=== PATIENT | female | born 1965 | race Caucasian/White ===

== ENCOUNTER 2019-04-01 15:07 | Observation (INO) ==
[2019-04-01] MEDS ORDERED: 0.9 % Sodium Chloride 1,000 ML IVC ONE (15:37)
--- NOTE | 2019-04-01 15:40 | Emergency Department Note ---
Disposition Clinical Impression: Hyperglycemia, Ketosis due to diabetes Disposition: Admitted As Inpatient Condition: Fair Forms: ED Satisfaction Letter, Work/School Release Time of Disposition: 16:56 General Adult HPI - General Chief complaint: ED General Medical Stated complaint: "im dehydrated" Time Seen by Provider: 04/01/19 15:33 Source: patient Mode of arrival: private vehicle Limitations: no limitations Nursing Notes Reviewed: Yes Vital Signs Reviewed: Yes - History of Present Illness Pt Subjective Complaint: Feels dehydrated Onset (ago): day(s) (Yesterday and today) Location: other (Generalized) Pain Severity: moderate Pain Scale: 0 Consistency: constant Improves with: nothing Worsens with: nothing Associated symptoms: Reports: other (Patient notes constant thirst and frequent urination) - Related Data Home Medications Medication Instructions Recorded Confirmed Loratadine 09/13/17 Meloxicam 09/13/17 Zyrtec 09/13/17 metFORMIN 09/13/17 Lisinopril 04/01/19 PredniSONE 04/01/19 Victoza 2-Rafael 04/01/19 Allergies Allergy/AdvReac Type Severity Reaction Status Date / Time No Known Allergies Allergy Verified 09/13/17 14:14 All systems ED: reviewed and negative except as stated. Constitutional: Denies: fever, chills ENT ED: Denies: ear pain, throat pain, congestion Cardiovascular: Denies: chest pain, palpitations Respiratory: Denies: cough, dyspnea Gastrointestinal: Denies: abdominal pain, nausea, vomiting, diarrhea Integumentary: Reports: other (Sunburn to shoulders) Past Medical History - Past Medical History Attestation: Yes The following information was validated with the patient. Source: patient, old records reviewed, nursing notes reviewed Medical history: Reports: arthritis, asthma, diabetes, hypertension Psychiatric history: Reports: no psych history - Social History Smoking Status: Never smoker Smokeless Tobacco Status: No Alcohol use: Reports: none Drug use: Reports: none Physical Exam - General Limitations: no limitations General appearance: alert, in no apparent distress - Head Head exam: atraumatic, normocephalic, normal inspection - Eye Eye exam: Present: normal appearance, PERRL, EOMI. Absent: scleral icterus, con junctival injection - ENT ENT exam: normal exam, normal oropharynx, mucous membranes moist, TM's normal bilaterally, normal external ear exam - Neck Neck exam: Present: normal inspection, full ROM, trachea midline. Absent: meningismus - Chest Chest inspection: Present: normal inspection, symmetric chest wall rise. Absent: tenderness - Respiratory Respiratory exam: Present: normal lung sounds bilaterally. Absent: respiratory distress, wheezes - Cardiovascular Cardiovascular exam: Present: regular rate, normal rhythm, normal heart sounds - Abdominal Exam Abdominal exam: Present: soft, Non-Tender, normal bowel sounds - Extremities Exam Extremities exam: Present: normal inspection. Absent: pedal edema - Neurological Exam Neurological exam: Present: alert, oriented X3 - Psychiatric Psychiatric exam: Present: normal affect, normal mood - Skin Skin exam: Present: warm, dry, other (Sunburn to both shoulders, first-degree) Course Course Narrative: Patient feels like she is dehydrated. She talks about polydipsia and polyuria and she is diabetic. I am going to put a line in her get some IV fluids. We will check labs to evaluate dehydration but more importantly diabetic complications and other issues. Disposition will be based on diagnostic results and reevaluation. - Reevaluation(s) Reevaluation #1: Patient's glucose came back at 840. Bicarbonate Chem-7 is only 20 so not terribly low. PH on the VBG was 7.41 so were not really seeing acidosis. Her ketones are little bit elevated at 1.37. We will start her on insulin drip of 5 units an hour and hydrate her. I already spoken with the hospitalist, Dr. Garay, who accepted her for admission to the hospital. We will stop the steroids as they will probably the offending agent. Patient is aware of diagnosis and comfortable with the admission plan. Time: 16:55 - Consultations Consultation #1: Dr. Garay, the [facility] - I discussed case with the hospice. He accepted the patient for admission. Time: 16:50 Vital Signs Temperature 97.9 F 04/01/19 15:11 Pulse Rate 106 04/01/19 15:11 Respiratory Rate 18 04/01/19 15:11 Blood Pressure 179/101 04/01/19 15:11 O2 Sat by Pulse Oximetry 98 04/01/19 15:11 Temperature 97.9 F 04/01/19 15:11 Pulse Rate 106 04/01/19 15:11 Respiratory Rate 18 04/01/19 15:11 Blood Pressure 179/101 04/01/19 15:11 O2 Sat by Pulse Oximetry 98 04/01/19 15:11 Oxygen Delivery Oxygen Delivery Room Air Medical Decision Making - Medical Records Medical records reviewed: Yes I reviewed the patient's medical records. - Lab Data Lab results reviewed: Yes I reviewed the patient's lab results. Result diagrams: 04/01/19 15:57 04/01/19 15:57 Lab Results 04/01/19 04/01/19 04/01/19 Range/Units 15:46 15:57 15:57 WBC 13.1 H (4.3-11.1) K/mcL RBC 5.50 H (3.82-4.97) M/mcL Hgb 15.6 H (11.5-15.4) g/dL Hct 44.1 (35.3-44.9) % MCV 80.2 L (83.0-100.0) fL MCH 28.4 (28.0-33.3) pg MCHC 35.4 (31.6-35.5) g/dL RDW 12.5 (11.5-14.5) % Plt Count 294 (140-400) K/mcL MPV 11.1 (9.4-12.4) fL Immature Gran % 0.5 (0-4) % Seg Neutrophils % 74.9 % Lymphocytes % 18.3 % Monocytes % 6.1 % Eosinophils % 0.0 % Basophils % 0.2 % Neutrophils # 9.8 H (1.6-8.9) K/mcL Lymphocytes # 2.4 (0.6-4.6) K/mcL Monocytes # 0.8 (0.0-1.3) K/mcL Eosinophils # 0.0 (0.0-0.6) K/mcL Basophils # 0.0 (0.0-0.2) K/mcL VBG pH (7.32-7.42) pH Units VBG pCO2 (41-51) mmHg VBG pO2 (25-50) mmHg VBG HCO3 (21-27) mEq/L Sodium 125 L (136-145) mEq/L Potassium 4.9 (3.5-5.1) mEq/L Chloride 88 L (98-107) mEq/L Carbon Dioxide 20 L (23-29) mEq/L BUN 22 H (6-20) mg/dL Creatinine 1.01 (0.60-1.20) mg/dL Est GFR ( Amer) > 60 (> 60) Est GFR (Non-Af Amer) 58 L (> 60) BUN/Creatinine Ratio 22 (6-26) Glucose 840 H* (70-105) mg/dL Calculated Osmolality 305 H (280-300) Calcium 10.1 (8.6-10.3) mg/dL Total Bilirubin 0.7 (0.3-1.0) mg/dL Direct Bilirubin 0.1 (0.0-0.2) mg/dL Indirect Bilirubin 0.6 (0.0-1.2) mg/dL AST 12 L (13-39) Units/L ALT 33 (7-52) Units/L Alkaline Phosphatase 114 H (34-104) Units/L Serum Total Protein 7.8 (6.4-8.9) g/dL Albumin 4.5 (3.5-5.7) g/dL Globulin 3.3 (2.4-3.5) g/dL Albumin/Globulin Ratio 1.4 (1.1-2.2) Beta-Hydroxybutyric Acd (0.02-0.27) mmol/L Urine Color Yellow (Yellow) Urine Clarity Clear (Clear) Urine pH 5.0 (5.0-8.0) pH Units Ur Specific [place] <= 1.005 L (1.010-1.025) Urine Protein Negative (Neg-Trace) mg/dL Urine Glucose (UA) >=1000 H (Normal) mg/dL Urine Ketones 15 H (Negative) mg/dL Urine Blood Negative (Negative) Urine Nitrite Negative (Negative) Urine Bilirubin Negative (Negative) Urine Urobilinogen Normal (Normal) mg/dL Ur Leukocyte Esterase Negative (Negative) Ur Culture Indicated? NO (NO) 04/01/19 04/01/19 Range/Units 15:57 16:08 WBC (4.3-11.1) K/mcL RBC (3.82-4.97) M/mcL Hgb (11.5-15.4) g/dL Hct (35.3-44.9) % MCV (83.0-100.0) fL MCH (28.0-33.3) pg MCHC (31.6-35.5) g/dL RDW (11.5-14.5) % Plt Count (140-400) K/mcL MPV (9.4-12.4) fL Immature Gran % (0-4) % Seg Neutrophils % % Lymphocytes % % Monocytes % % Eosinophils % % Basophils % % Neutrophils # (1.6-8.9) K/mcL Lymphocytes # (0.6-4.6) K/mcL Monocytes # (0.0-1.3) K/mcL Eosinophils # (0.0-0.6) K/mcL Basophils # (0.0-0.2) K/mcL VBG pH 7.41 (7.32-7.42) pH Units VBG pCO2 33 L (41-51) mmHg VBG pO2 96 H (25-50) mmHg VBG HCO3 21 (21-27) mEq/L Sodium (136-145) mEq/L Potassium (3.5-5.1) mEq/L Chloride (98-107) mEq/L Carbon Dioxide (23-29) mEq/L BUN (6-20) mg/dL Creatinine (0.60-1.20) mg/dL Est GFR ( Amer) (> 60) Est GFR (Non-Af Amer) (> 60) BUN/Creatinine Ratio (6-26) Glucose (70-105) mg/dL Calculated Osmolality (280-300) Calcium (8.6-10.3) mg/dL Total Bilirubin (0.3-1.0) mg/dL Direct Bilirubin (0.0-0.2) mg/dL Indirect Bilirubin (0.0-1.2) mg/dL AST (13-39) Units/L ALT (7-52) Units/L Alkaline Phosphatase (34-104) Units/L Serum Total Protein (6.4-8.9) g/dL Albumin (3.5-5.7) g/dL Globulin (2.4-3.5) g/dL Albumin/Globulin Ratio (1.1-2.2) Beta-Hydroxybutyric Acd 1.37 H (0.02-0.27) mmol/L Urine Color (Yellow) Urine Clarity (Clear) Urine pH (5.0-8.0) pH Units Ur Specific [place] (1.010-1.025) Urine Protein (Neg-Trace) mg/dL Urine Glucose (UA) (Normal) mg/dL Urine Ketones (Negative) mg/dL Urine Blood (Negative) Urine Nitrite (Negative) Urine Bilirubin (Negative) Urine Urobilinogen (Normal) mg/dL Ur Leukocyte Esterase (Negative) Ur Culture Indicated? (NO)
[2019-04-01 16:04] LABS: Basophils % 0.2 %; Hematocrit 44.1 % (35.3-44.9); Hemoglobin 15.6 g/dL (11.5-15.4); Immature Granulocytes % 0.5 % (0-4); Lymphocytes # 2.4 K/mcL (0.6-4.6); Lymphocytes % 18.3 %; Mean Corpuscular HGB Conc 35.4 g/dL (31.6-35.5); Mean Corpuscular Hemoglobin 28.4 pg (28.0-33.3); Mean Corpuscular Volume 80.2 fL (83.0-100.0); Mean Platelet Volume 11.1 fL (9.4-12.4); Monocytes # 0.8 K/mcL (0.0-1.3); Monocytes % 6.1 %; Neutrophils # 9.8 K/mcL (1.6-8.9); Platelet Count 294 K/mcL (140-400); Red Cell Distribution Width 12.5 % (11.5-14.5); Segmented Neutrophils % 74.9 %; White Blood Count 13.1 K/mcL (4.3-11.1)
[2019-04-01 16:06] LABS: Bilirubin,Urine Negative (Negative); Blood,Urine Negative (Negative); Clarity,Urine Clear (Clear); Color,Urine Yellow (Yellow); Glucose,Urine (UA) >=1000 mg/dL (Normal); Ketones,Urine 15 mg/dL (Negative); Leukocyte Esterase,Urine Negative (Negative); Nitrite,Urine Negative (Negative); Protein,Urine Negative (Neg-Trace); Specific Gravity,Urine <= 1.005 (1.010-1.025); Urobilinogen,Urine Normal (Normal)
[2019-04-01 16:10] LABS: VBG HCO3 21 mEq/L (21-27); VBG PCO2 33 mmHg (41-51); VBG PH 7.41 pH Units (7.32-7.42); VBG PO2 96 mmHg (25-50)
[2019-04-01 16:31] LABS: Alanine Aminotransferase 33 Units/L (7-52); Albumin 4.5 g/dL (3.5-5.7); Albumin/Globulin Ratio 1.4 (1.1-2.2); Alkaline Phosphatase 114 Units/L (34-104); Aspartate Amino Transferase 12 Units/L (13-39); BUN/Creatinine Ratio 22 (6-26); Bilirubin,Direct 0.1 mg/dL (0.0-0.2); Bilirubin,Indirect 0.6 mg/dL (0.0-1.2); Bilirubin,Total 0.7 mg/dL (0.3-1.0); Blood Urea Nitrogen 22 mg/dL (6-20); Calcium 10.1 mg/dL (8.6-10.3); Carbon Dioxide 20 mEq/L (23-29); Chloride 88 mEq/L (98-107); Globulin 3.3 g/dL (2.4-3.5); Glucose 840 mg/dL (70-105); Osmolality,Calculated 305 (280-300); Potassium 4.9 mEq/L (3.5-5.1); Sodium 125 mEq/L (136-145); Total Protein 7.8 g/dL (6.4-8.9); eGFR For African Americans > 60 (> 60); eGFR For Non-African Americans 58 (> 60)
[2019-04-01] MEDS ORDERED: *HR* Dextrose 50 % in Water (Syg) 50 ML SYRINGE IVP PRN (16:57)
[2019-04-01] MEDS ORDERED: Insulin Human Regular 100 UNIT in 0.9 % Sodium Chloride 100 ML IVC SCH (17:00)
[2019-04-01] MEDS ORDERED: Naloxone 0.4 MG/ML INJ IVP PRN (17:11)
[2019-04-01] MEDS ORDERED: Ondansetron ODT 4 MG TAB.RAPDIS SL PRN (17:11)
[2019-04-01] MEDS ORDERED: *HR* Dextrose 50 % in Water (Vial) 50 ML VIAL IVP PRN (17:11)
[2019-04-01] MEDS ORDERED: 0.9 % Sodium Chloride 1,000 ML ONE (17:17)
[2019-04-01] MEDS: 0.9 % Sodium Chloride 1,000 ML IVC SCH ×2 (17:37→22:36)
[2019-04-01] MEDS: Insulin Human Regular 100 UNIT in 0.9 % Sodium Chloride 100 ML IVC SCH (17:41)
[2019-04-02] MEDS ORDERED: Dextrose Gel 15 GM/37.5 ML TUBE PO PRN ×2 (03:33)
[2019-04-02] MEDS ORDERED: D5% in Water 1,000 ML IVC PRN (03:33)
[2019-04-02] MEDS ORDERED: *HR* Dextrose 50 % in Water (Syg) 50 ML SYRINGE IVP PRN (03:33)
[2019-04-02] MEDS: Insulin LISPRO 300 UNITS/3 ML VIAL SQ SCH ×4 (07:29→20:32)
[2019-04-02 07:43] LABS: BUN/Creatinine Ratio 26 (6-26); Blood Urea Nitrogen 18 mg/dL (6-20); Calcium 8.1 mg/dL (8.6-10.3); Carbon Dioxide 24 mEq/L (23-29); Chloride 104 mEq/L (98-107); Glucose 322 mg/dL (70-105); Osmolality,Calculated 298 (280-300); Potassium 3.7 mEq/L (3.5-5.1); Sodium 137 mEq/L (136-145); eGFR For African Americans > 60 (> 60); eGFR For Non-African Americans > 60 (> 60)
--- NOTE | 2019-04-02 10:26 | Internal Med History&Physical ---
Date of Encounter: 04/02/19 Time of Encounter: 10:00 Assessment and Plan (1) Hyperglycemia Current visit: Yes Status: Acute She was started on insulin drip in emergency room. IV fluids have been ordered. Blood sugars will be monitored. (2) DM type 2 (diabetes mellitus, type 2) Current visit: Yes Status: Chronic Hemoglobin A1c will be checked. Continue metformin and Accu-Cheks with SSI when insulin drip is discontinued. Qualifiers: Diabetes mellitus assistant terminal manager insulin use: without fpc use Diabetes mellitus complication status: without complication Qualified Code(s): E11.9 - Type 2 diabetes mellitus without complications (3) Acute renal failure Current visit: Yes Status: Acute Likely due to dehydration and NSAID use. IV fluids have been ordered and renal indices will be monitored. Qualifiers: Acute renal failure type: unspecified Qualified Code(s): N17.9 - Acute kidney failure, unspecified (4) Hypertension Current visit: Yes Status: Chronic Hold lisinopril and monitor blood pressure. Qualifiers: Hypertension type: essential hypertension Qualified Code(s): I10 - Essential (primary) hypertension (5) Microcytosis Current visit: Yes Status: Acute Possible iron depletion from NSAID use. Iron studies will be ordered. (6) Weight loss Current visit: Yes Status: Acute TSH and hemoglobin A1c will be checked. Internal Medicine - H&P: HPI Chief complaint: Hyperglycemia, dehydration, acute renal insufficiency Admitted From: Emergency Dept Plans for Post Hospital Care: Home History of present illness: Ms. Byers is a 53 year old female who came to emergency room stating she had progressive weakness, dysgeusia, and "not acting right" "per family observation. She was evaluated in emergency room and was found to have severe hyperglycemia with acute renal insufficiency. She was admitted to [facility] floor for ongoing care needs. She reports she was treated for poison josselyn with IM injection of steroids and Rx for prednisone approximately 2 weeks ago at her PCP office. When the poison josselyn appeared to be worsening she returned to her PCP office on 03/29/2019 and received higher dose prednisone Rx. She does not routinely check her blood sugars at home. She was diagnosed with DM 2 approximately 4 years ago. She denies known thyroid disease or hyperlipidemia. Past Med Surg Social Fam HX - Past Medical History Medical history: arthritis, asthma, diabetes, hypertension Additional medical history: dm2, allergies, bronchitis, pneumonia Psychiatric history: no psych history - Past Surgical History Surgical History: hysterectomy Additional surgical history: Cyst removed from overies, Bladder Tuck, - Social History Smoking Status: Never smoker Smokeless Tobacco Status: No Alcohol use: none Drug use: none Internal Medicine - H&P: Meds Loratadine 09/13/17 [History] Meloxicam 09/13/17 [History] Zyrtec 09/13/17 [History] metFORMIN 09/13/17 [History] Lisinopril 04/01/19 [History] PredniSONE 04/01/19 [History] Victoza 2-Rafael 04/01/19 [History] Allergy/AdvReac Type Severity Reaction Status Date / Time No Known Allergies Allergy Verified 09/13/17 14:14 All Systems PM: A 10-system review of systems was performed and is negative for pertinent findings except as documented above in the HPI. Review of systems: Gen.: She states her weight has decreased approximately 20 pounds in the past 2 months, unintentionally Cardiovascular: She has history of hypertension but denies NV heart failure angina DVT or pulmonary embolus Respiratory: She is a lifelong nonsmoker. She reports occasional episodes of acute bronchitis and has been told she may have asthma. She reports being tested for POLINA approximately 2003 with equivocal results. She does not use CPAP or BiPAP. GI: She has had elevated transaminase levels in the past. She reports a NSAID was discontinued and her LFTs normalized. She denies disorders of her liver gallbladder or exocrine pancreas otherwise : She denies hematuria dysuria or kidney stones Neurologic: She denies large distribution strokes or seizures. Endocrine: As per history of present illness Hematology/oncology: She denies blood disorders cancers or anemia Psychiatric: She denies anxiety depression or other mental health issues [place] skeletal: She has DJD but denies gout or other bone joint or muscle disorders. - Constitutional Vitals: Temp Pulse Resp BP Pulse Ox 98.1 F 66 16 137/82 94 04/02/19 07:25 04/02/19 07:25 04/02/19 07:25 04/02/19 07:25 04/02/19 07:25 Exam: Gen.: She is a well-developed well-nourished female resting comfortably in bed who appears in no severe distress at present time HEENT: Head is atraumatic and normocephalic. Eyes: EOMI. There is no scleral icterus. Mouth: Mucosa is moist. Neck: Supple and nontender. There is no thyromegaly or adenopathy noted. Heart: Regular without murmurs gallops or ectopics Lungs: No wheezes or crackles are heard. Abdomen: Soft and nontender. No masses or guarding are noted. Extremities: She is wearing ALEXEY hose on her lower legs bilaterally. I did not remove. There is no cyanosis of her fingernails or edema of her lower legs. Dorsalis pedis and posterior tibial pulses are not palpable through the ALEXEY hose. Neurologic: Mental status: She is talkative and a good historian. Cranial nerves: Smile is symmetric. Forehead wrinkles bilaterally. Tongue protrudes midline. EOMI. Motor: There is no pronator drift. Cerebellar: Finger to nose is intact bilaterally. Skin: Warm and dry. She has resolving lesions on her arms from recent poison josselyn. Internal Med - H&P Results - Labs CBC & Chem 7: 04/01/19 15:57 04/02/19 06:18 Labs: Short CBC 04/01/19 Range/Units 15:57 WBC 13.1 H (4.3-11.1) K/mcL Hgb 15.6 H (11.5-15.4) g/dL Hct 44.1 (35.3-44.9) % Plt Count 294 (140-400) K/mcL Neutrophils # 9.8 H (1.6-8.9) K/mcL BMP 04/01/19 04/02/19 15:57 06:18 Sodium 125 L 137 D Potassium 4.9 3.7 Chloride 88 L 104 Carbon Dioxide 20 L 24 BUN 22 H 18 Creatinine 1.01 0.69 Glucose 840 H* 322 H Calcium 10.1 8.1 L Liver Function 04/01/19 Range/Units 15:57 Total Bilirubin 0.7 (0.3-1.0) mg/dL Direct Bilirubin 0.1 (0.0-0.2) mg/dL AST 12 L (13-39) Units/L ALT 33 (7-52) Units/L Alkaline Phosphatase 114 H (34-104) Units/L Albumin 4.5 (3.5-5.7) g/dL Urine 04/01/19 Range/Units 15:46 Urine Color Yellow (Yellow) Urine Clarity Clear (Clear) Urine pH 5.0 (5.0-8.0) pH Units Ur Specific Bliss <= 1.005 L (1.010-1.025) Urine Protein Negative (Neg-Trace) mg/dL Urine Glucose (UA) >=1000 H (Normal) mg/dL - ABG Interpretation ABG results: 04/01/19 16:08 VBG pH 7.41 VBG pCO2 33 L VBG pO2 96 H VBG HCO3 21
[2019-04-02] MEDS ORDERED: DiphenhydraMINE CREAM 28.4 GM TUBE TP PRN (10:54)
[2019-04-02] MEDS: 0.45 % Sodium Chloride w/KCl 20 MEQ/1,000 ML MLS IVC SCH (11:49)
[2019-04-02 12:51] LABS: Basophils % 0.3 %; Eosinophils # 0.1 K/mcL (0.0-0.6); Hematocrit 40.4 % (35.3-44.9); Immature Granulocytes % 0.7 % (0-4); Mean Corpuscular HGB Conc 34.7 g/dL (31.6-35.5); Mean Corpuscular Hemoglobin 28.5 pg (28.0-33.3); Mean Corpuscular Volume 82.3 fL (83.0-100.0); Mean Platelet Volume 10.7 fL (9.4-12.4); Monocytes # 0.6 K/mcL (0.0-1.3); Monocytes % 6.1 %; Platelet Count 228 K/mcL (140-400); Red Blood Count 4.91 M/mcL (3.82-4.97); Red Cell Distribution Width 12.7 % (11.5-14.5); Segmented Neutrophils % 50.9 %; White Blood Count 9.8 K/mcL (4.3-11.1)
[2019-04-02 13:24] LABS: Thyroid Stimulating Hormone 0.902 mcIU/mL (0.340-5.600)
[2019-04-02] MEDS: Insulin Human Regular 100 UNIT in 0.9 % Sodium Chloride 100 ML IVC SCH (17:00)
[2019-04-03] MEDS: 0.45 % Sodium Chloride w/KCl 20 MEQ/1,000 ML MLS IVC SCH (00:17)
[2019-04-03 04:44] LABS: Basophils % 0.5 %; Eosinophils # 0.1 K/mcL (0.0-0.6); Eosinophils % 1.8 %; Hematocrit 35.2 % (35.3-44.9); Hemoglobin 12.1 g/dL (11.5-15.4); Immature Granulocytes % 0.5 % (0-4); Lymphocytes # 3.5 K/mcL (0.6-4.6); Lymphocytes % 52.3 %; Mean Corpuscular HGB Conc 34.4 g/dL (31.6-35.5); Mean Corpuscular Hemoglobin 28.7 pg (28.0-33.3); Mean Corpuscular Volume 83.4 fL (83.0-100.0); Mean Platelet Volume 10.8 fL (9.4-12.4); Monocytes # 0.4 K/mcL (0.0-1.3); Monocytes % 5.8 %; Neutrophils # 2.6 K/mcL (1.6-8.9); Platelet Count 152 K/mcL (140-400); Red Blood Count 4.22 M/mcL (3.82-4.97); Red Cell Distribution Width 12.8 % (11.5-14.5); Segmented Neutrophils % 39.1 %; White Blood Count 6.6 K/mcL (4.3-11.1)
[2019-04-03] MEDS: Insulin LISPRO 300 UNITS/3 ML VIAL SQ SCH ×4 (07:16→21:51)
[2019-04-03 07:40] LABS: BUN/Creatinine Ratio 22 (6-26); Blood Urea Nitrogen 15 mg/dL (6-20); Calcium 7.4 mg/dL (8.6-10.3); Carbon Dioxide 21 mEq/L (23-29); Chloride 106 mEq/L (98-107); Glucose 429 mg/dL (70-105); Osmolality,Calculated 297 (280-300); Potassium 3.5 mEq/L (3.5-5.1); Sodium 134 mEq/L (136-145); eGFR For African Americans > 60 (> 60); eGFR For Non-African Americans > 60 (> 60)
--- NOTE | 2019-04-03 10:39 | Internal Med Progress Note ---
Date of Encounter: 04/03/19 Time of Encounter: 10:30 - Assessment and plan (1) Hyperglycemia Current Visit: Yes Status: Acute Assessment and plan: April 03. Restart metformin at home dose. She will also be given Levemir 10 units twice a day. Hemoglobin A1c pending (2) DM type 2 (diabetes mellitus, type 2) Current Visit: Yes Status: Chronic Assessment and plan: April 03. As above Qualifiers: Diabetes mellitus half-way insulin use: without half-way use Diabetes mellitus complication status: without complication Qualified Code(s): E11.9 - Type 2 diabetes mellitus without complications (3) Acute renal failure Current Visit: Yes Status: Acute Assessment and plan: April 03. Resolved with BUN and creatinine now 15 and 0.68 respectively. Discontinue IV fluids. Qualifiers: Acute renal failure type: unspecified Qualified Code(s): N17.9 - Acute kidney failure, unspecified (4) Hypertension Current Visit: Yes Status: Chronic Assessment and plan: April 03. Blood pressure stable. Remain off lisinopril. Qualifiers: Hypertension type: essential hypertension Qualified Code(s): I10 - Essential (primary) hypertension (5) Microcytosis Current Visit: Yes Status: Acute Assessment and plan: April 03. Iron studies unremarkable. Continue to monitor. (6) Weight loss Current Visit: Yes Status: Acute Assessment and plan: April 03. TSH normal at 0.902. Hemoglobin A1c pending. - Subjective Interval history: April 03. She has no new complaints and feels better overall. - Constitutional Vitals: Temp Pulse Resp BP Pulse Ox 98.2 F 66 16 125/81 96 04/03/19 06:42 04/03/19 06:42 04/03/19 06:42 04/03/19 06:42 04/03/19 06:42 Exam: She is resting comfortably in bed and appears in no acute distress. Her affect is bright and cheerful. I reviewed her medications and lab results. Internal Medicine: Result - Labs CBC & Chem 7: 04/03/19 04:20 04/03/19 04:20 Labs: Short CBC 04/02/19 04/03/19 Range/Units 12:37 04:20 WBC 9.8 6.6 (4.3-11.1) K/mcL Hgb 14.0 D 12.1 D (11.5-15.4) g/dL Hct 40.4 35.2 L (35.3-44.9) % Plt Count 228 152 (140-400) K/mcL Neutrophils # 5.0 2.6 (1.6-8.9) K/mcL BMP 04/03/19 04:20 Sodium 134 L Potassium 3.5 Chloride 106 Carbon Dioxide 21 L BUN 15 Creatinine 0.68 Glucose 429 H Calcium 7.4 L Consult Discharge Plan - Plan Referrals: Nerissa Pathak, [employer] [Primary Care Provider] - 1 week
[2019-04-03] MEDS: *HR* Metformin 500 MG TABLET PO SCH ×2 (11:15→17:02)
[2019-04-03] MEDS: Insulin DETEMIR 100 UNIT/ML X5UNITS SQ SCH ×2 (12:46→21:50)
[2019-04-03] MEDS: Insulin Human Regular 100 UNIT in 0.9 % Sodium Chloride 100 ML IVC SCH (19:36)
[2019-04-04 07:15] LABS: Basophils % 0.3 %; Eosinophils # 0.1 K/mcL (0.0-0.6); Eosinophils % 2.4 %; Hematocrit 37.8 % (35.3-44.9); Hemoglobin 13.2 g/dL (11.5-15.4); Immature Granulocytes % 0.5 % (0-4); Lymphocytes # 2.6 K/mcL (0.6-4.6); Lymphocytes % 45.3 %; Mean Corpuscular HGB Conc 34.9 g/dL (31.6-35.5); Mean Corpuscular Hemoglobin 28.7 pg (28.0-33.3); Mean Corpuscular Volume 82.2 fL (83.0-100.0); Mean Platelet Volume 10.4 fL (9.4-12.4); Monocytes # 0.4 K/mcL (0.0-1.3); Monocytes % 6.9 %; Neutrophils # 2.6 K/mcL (1.6-8.9); Platelet Count 152 K/mcL (140-400); Red Cell Distribution Width 12.5 % (11.5-14.5); Segmented Neutrophils % 44.6 %; White Blood Count 5.8 K/mcL (4.3-11.1)
[2019-04-04 07:34] LABS: Alanine Aminotransferase 64 Units/L (7-52); Albumin 3.3 g/dL (3.5-5.7); Albumin/Globulin Ratio 1.4 (1.1-2.2); Alkaline Phosphatase 64 Units/L (34-104); Aspartate Amino Transferase 40 Units/L (13-39); BUN/Creatinine Ratio 19 (6-26); Bilirubin,Total 0.4 mg/dL (0.3-1.0); Blood Urea Nitrogen 13 mg/dL (6-20); Calcium 8.4 mg/dL (8.6-10.3); Carbon Dioxide 26 mEq/L (23-29); Chloride 104 mEq/L (98-107); Globulin 2.3 g/dL (2.4-3.5); Glucose 323 mg/dL (70-105); Osmolality,Calculated 291 (280-300); Potassium 3.9 mEq/L (3.5-5.1); Sodium 134 mEq/L (136-145); Total Protein 5.6 g/dL (6.4-8.9); eGFR For African Americans > 60 (> 60); eGFR For Non-African Americans > 60 (> 60)
[2019-04-04] MEDS: Insulin LISPRO 300 UNITS/3 ML VIAL SQ SCH ×2 (07:39→11:41)
[2019-04-04] MEDS: *HR* Metformin 500 MG TABLET PO SCH (07:39)
[2019-04-04] MEDS: Insulin DETEMIR 100 UNIT/ML X5UNITS SQ SCH (09:09)
[2019-04-04 12:22] LABS: Estimated Average Glucose 418 mg/dl
[2019-04-04 14:35] VITALS: BP 153/98
--- NOTE | 2019-04-04 15:00 | Discharge Summary ---
Date of Encounter: 04/04/19 Time of Encounter: 14:50 - Discharge Diagnosis (1) Hyperglycemia Priority: Primary Status: Acute (2) DM type 2 (diabetes mellitus, type 2) Priority: Secondary Status: Chronic Qualifiers: Diabetes mellitus meterman insulin use: without group home use Diabetes mellitus complication status: without complication Qualified Code(s): E11.9 - Type 2 diabetes mellitus without complications (3) Acute renal failure Priority: Secondary Status: Acute Qualifiers: Acute renal failure type: unspecified Qualified Code(s): N17.9 - Acute kidney failure, unspecified (4) Hypertension Priority: Secondary Status: Chronic Qualifiers: Hypertension type: essential hypertension Qualified Code(s): I10 - Essential (primary) hypertension (5) Microcytosis Priority: Secondary Status: Acute (6) Weight loss Priority: Secondary Status: Acute Hospital course: Ms. Byers is a 53 year old female who came to emergency room stating she had progressive weakness, dysgeusia, and "not acting right" "per family observation. She was evaluated in emergency room and was found to have severe hyperglycemia with acute renal insufficiency. She was admitted to [facility] floor for ongoing care needs. Initial orders were written by the emergency room physician. I saw her on April 02 and performed the history and physical. She was started on IV fluids and insulin drip in emergency room. Blood sugar returned to a safe range in the first 24 hours of hospitalization. Leukocytosis resolved by the second hospital day and remained normal throughout the remainder of hospitalization. Metformin was restarted. Lantus was also given during her hospital stay. Hemoglobin A1c returned significantly elevated at 16.2%. She will be started on Glucotrol and continue metformin and Victoza. She was instructed to follow a diabetic diet. She requested to see a dietitian and this can be arranged through her PCP office. Azotemia resolved with BUN and creatinine decreasing to 13 and 0.67 respectively by day of discharge with estimated GFR > 60. Microcytosis workup showed iron 58, transferrin saturation 23%, transferrin 180, and ferritin 176. Her PCP can continue to monitor. On April 04 she was stable for discharge home. She will follow with her PCP Nerissa Ptahak CNP within 1 week. - Time Spent with Patient Total time spent providing and/or coordinating discharge services: - Discharge Medications Prescriptions: New metFORMIN [Glucophage] 1,000 mg PO BIDWM tablet GlipiZIDE [Glucotrol] 5 mg PO 0800 #30 tablet Continued Zyrtec metFORMIN Loratadine Victoza 2-Rafael Lisinopril Discontinued Meloxicam PredniSONE Home Medications: Loratadine 09/13/17 [History] Zyrtec 09/13/17 [History] metFORMIN 09/13/17 [History] Lisinopril 04/01/19 [History] Victoza 2-Rafael 04/01/19 [History] GlipiZIDE [Glucotrol] 5 mg PO 0800 #30 tablet 04/04/19 [Rx] metFORMIN [Glucophage] 1,000 mg PO BIDWM tablet 04/04/19 [Rx] Allergies/Adverse Reactions: Allergy/AdvReac Type Severity Reaction Status Date / Time No Known Allergies Allergy Verified 09/13/17 14:14 Date of admission: 04/01/19 17:06 Primary care physician: Nerissa Pathak CNP - Constitutional Vitals: Temp Pulse Resp BP Pulse Ox 98.1 F 72 16 153/98 98 04/04/19 14:31 04/04/19 14:31 04/04/19 14:31 04/04/19 14:31 04/04/19 14:31 - Patient Status Disposition: Home, Self-Care Condition: Fair - Discharge Instructions Follow Up With: Nerissa Pathak CNP [Primary Care Provider] - 1 week - Diet and Activity Activity: resume usual activities as tolerated Diet: diabetic diet
== END 2019-04-04 15:50 | disposition home or self-care (01) ==
LOC: EMEROOPIK 15:07 → INPPIK 15:07
PROVIDERS: ADMIT Internal Medicine; ATTEND Internal Medicine